=== PATIENT | female | born 1960 | race Caucasian/White ===

== ENCOUNTER → 2020-06-29 10:20 | Outpatient (CLI) | payer BC, SELFPAY ==
--- NOTE | 2020-06-29 | DI.MG.S_ITS ---
BILATERAL DIGITAL SCREENING MAMMOGRAM 3D/2D WITH CAD: 06/29/2020 CLINICAL: Routine screening. Comparison is made to exams dated: 09/19/2010 mammogram, 09/25/2010 mammogram, and 09/15/2013 mammogram - [facility]. There are scattered fibroglandular elements in both breasts. Current study was also evaluated with a Computer Aided Detection (CAD) system. No significant masses, calcifications, or other findings are seen in either breast. There has been no significant interval change. IMPRESSION: NEGATIVE There is no mammographic evidence of malignancy. A 1 year screening mammogram is recommended. This exam was interpreted at Station ID: [id number]. NOTE: For mammograms, a report in lay terms will be sent to the patient. Approximately 15% of breast malignancies will not be visualized mammographically. In the management of a palpable breast mass, a negative mammogram must not discourage biopsy of a clinically suspicious lesion. Electronically Signed By: Josesito keane/nohemy:07/01/2020 07:50:14 letter sent: Normal Exam ACR BI-RADS Category 1: Negative 3341F
== END ==
PROVIDERS: Referring Provider Family Medicine; Visit Provider Family Medicine
DX: Z12.31 Encounter for screening mammogram for malignant neoplasm of breast (principal)
CPT/HCPCS: 77063; 77067

== ENCOUNTER → 2021-08-18 07:34 | Outpatient (CLI) | payer BC, SELFPAY ==
--- NOTE | 2021-08-18 | DI.MG.S_ITS ---
BILATERAL DIGITAL SCREENING MAMMOGRAM 3D/2D WITH CAD: 08/18/2021 CLINICAL: Routine screening. Comparison is made to exams dated: 06/29/2020 mammogram - [facility], 09/15/2013 mammogram, and 09/25/2010 mammogram - [facility]. There are scattered fibroglandular elements in both breasts. Current study was also evaluated with a Computer Aided Detection (CAD) system. No significant masses, calcifications, or other findings are seen in either breast. There has been no significant interval change. IMPRESSION: NEGATIVE There is no mammographic evidence of malignancy. A 1 year screening mammogram is recommended. This exam was interpreted at Station ID: [id number]. NOTE: For mammograms, a report in lay terms will be sent to the patient. Approximately 15% of breast malignancies will not be visualized mammographically. In the management of a palpable breast mass, a negative mammogram must not discourage biopsy of a clinically suspicious lesion. Electronically Signed By: Prema kelly/nohemy:08/18/2021 12:49:19 letter sent: Normal Exam ACR BI-RADS Category 1: Negative 3341F
== END ==
PROVIDERS: PCP Nurse Practitioner; Referring Provider Nurse Practitioner; Visit Provider Nurse Practitioner
DX: Z12.31 Encounter for screening mammogram for malignant neoplasm of breast (principal)
CPT/HCPCS: 77063; 77067

== ENCOUNTER → 2022-02-06 09:55 | Outpatient (CLI) | payer OTHER, SELFPAY ==
[2022-02-06 11:10] LABS: COVID19 -Nasal RAPID Negative (Negative)
== END ==
PROVIDERS: PCP Nurse Practitioner; Visit Provider Surgery
DX: Z20.822 Contact with and (suspected) exposure to COVID-19 (principal); Z01.812 Encounter for preprocedural laboratory examination
CPT/HCPCS: 87635; C9803

== ENCOUNTER 2022-02-09 11:36 | Day surgery (SDC) | payer OTHER, SELFPAY ==
--- NOTE | 2022-02-09 | PATH_ITS ---
[facility] Accession Number: [id number] . 01 Material submitted: . rectosigmoid junction - RECTO-SIGMOID POLYP . 01 Diagnosis: Rectosigmoid Colon, Polyp, Biopsy: Tubular adenoma. MRV 02/11/2022 1535 Local . 01 Electronically signed: . Sherlyn Guevara MD, Pathologist NPI- [id number] . 01 Gross description: . RECTO-SIGMOID POLYP: Received in formalin is 1 fragment(s) of mendez, soft tissue measuring 0.4 x 0.3 x 0.2 cm submitted entirely in 1 cassette(s) /DONIS 02/10/2022 1853 Local . 01 Pathologist provided ICD-10: D12.7 . 01 CPT . 570292 Specimen Comment: A courtesy copy of this report has been sent to [phone] Specimen Comment: [id number], Performed at: 01 [facility] [address] [place] [address] [address], [place], [place] [id number] MD Conor Jarquin MD Phone: [phone]
[2022-02-09 11:56] VITALS: BP 130/81; PULSE 74; RESP 16; TEMP 36.3; O2SAT 98; BMI 27.4
--- NOTE | 2022-02-09 12:09 | PM.HP.1 ---
History of Present Illness History of Present Illness Chief complaint: SCREENING COLONOSCOPY Narrative: 61-year-old female here for colon cancer screening. She is at average risk for colon cancer Patient History Surgical History (Updated 08/31/17 @ 06:10 by Conversion Provider) Status post appendectomy Family & Social History Family History (Updated 10/11/16 @ 00:00 by Conversion Provider) Father Age: 101 Heart disease Hypertension Mental health problem Mother Heart disease Grandfather Heart disease Grandmother Heart disease Sister Age: 67 Lupus Celiac disease Social History: household members spouse Tobacco & Substance use: Smoking Status Never smoker alcohol intake current alcohol intake frequency a few times a week Substance Use Type does not use Meds Home Medications and Allergies Allergies Allergy/AdvReac Type Severity Reaction Status Date / Time latex [LATEX] Allergy Unknown Verified 02/09/22 11:49 Sulfa (Sulfonamide Allergy Unknown Verified 02/09/22 11:49 Antibiotics) [SULFA (SULFONAMIDE ANTIBIOTICS)] Exam Vital Signs (past 8 hours): - 02/09/22 11:56 Temperature 97.4 F L Pulse Rate 74 Respiratory Rate 16 Blood Pressure 130/81 Pulse Oximetry 98 Oxygen Delivery Method Room Air Oxygen Delivery Method Room Air Narrative Exam Narrative: General: Patient is overweight, not in apparent distress Cardiovascular: Regular rate and rhythm, no murmurs, rubs, or gallops; no evidence of edema; no palpable abdominal aortic aneurysm Gastrointestinal: Normoactive bowel sounds, soft, nontender, nondistended, no rebound tenderness, no hepatosplenomegaly, no evidence of hernia Assessment & Plan Assessment & Plan narrative: 61-year-old female here for colon cancer screening. No family history of colon polyps or colon cancer Regarding the procedure(s), the risks and potential complications, benefits, and alternatives (including not doing the procedure) were discussed with the patient. The risks include but are not limited to bleeding, splenic injury, infection, perforation which may require surgical intervention, missed lesions, and adverse reactions to sedative medicines. After a question and answer period, the patient agreed to proceed with the procedure(s) and gives informed consent. Time Spent With Patient Critical Care time: I spent a total of [] minutes of critical care time on this patient's care today; this time is exclusive of procedural time.
[2022-02-09] MEDS: SODIUM CHLORIDE 0.9% 1,000 ML 70 ML IV (12:12)
--- NOTE | 2022-02-09 12:19 | PM.OP.COLON ---
Procedure Notes Procedure in detail: Surgeon: Meek Tapia MD Procedure: Colonoscopy with polypectomy Preoperative diagnosis: Colon cancer screening Postoperative diagnosis: Rectosigmoid polyp status post polypectomy, grade 1 internal hemorrhoids Medications: Monitored anesthesia care Preanesthesia Assessment An H and P was performed/updated and the Px?s ASA class is 1. The procedure was discussed in detail with the patient. The potential risks and complications including infection, bleeding, missed lesions, perforation, need for surgery in case of perforation, prolonged hospital stay, and were explained. A brief question and answer period was allotted and once all questions were answered, informed consent was obtained. The patient was brought back to the procedure room and placed on standard monitoring. The patient?s vital signs were monitored continuously throughout the entire procedure. Prior to starting, a timeout was performed to confirm the patient?s identity, allergies, medications, and procedure. Procedure in detail The patient was placed in left lateral decubitus position and once adequate sedation was obtained a VIVIEN was performed. The digital rectal examination did not reveal any palpable lesions. The tip of the colonoscope was placed in the anal canal and advanced without difficulty all the way to the cecum which was identified by the appendiceal orifice and the ileocecal valve. Careful examination of all yeh of the colon was performed with irrigation of any residual stool. In the rectosigmoid colon, a 3 mm sessile polyp was removed by means of cold snare. Resection and retrieval was complete with minimal bleeding The patient tolerated the procedure well and will be brought back to the recovery area to be discharged once criteria are met. The prep was judged to be good and adequate to identify polyps less than 5 mm. The withdrawal time was 10 minutes. Complications There were no complications and estimated blood loss was minimal. Recommendations: Resume previous diet Follow up pathology results Repeat colonoscopy in 5 or 7 or 10 years depending on pathology results An emergency contact number was given to the patient for any complications related to the procedure
[2022-02-09 12:41] VITALS: BP 126/80; PULSE 68; RESP 15; TEMP 36.1; O2SAT 98
[2022-02-09 12:47] VITALS: BP 128/81; PULSE 72; RESP 19; O2SAT 99
[2022-02-09 12:52] VITALS: BP 129/81; PULSE 57; RESP 12; TEMP 36.3; O2SAT 99
[2022-02-09 13:04] VITALS: BP 112/70; PULSE 77; RESP 16; TEMP 36.8; O2SAT 98
== END 2022-02-09 13:03 | disposition home or self-care (01) ==
PROVIDERS: PCP Nurse Practitioner; Referring Provider Internal Medicine Gastroenterology; Visit Provider Internal Medicine Gastroenterology
PROC: 0DJD8ZZ Inspection of Lower Intestinal Tract, Via Natural or Artificial Opening Endoscopic (ICD-10-PCS; CPT 45378; principal; 2022-02-09 12:30)
DX: Z12.11 Encounter for screening for malignant neoplasm of colon (principal); K64.0 First degree hemorrhoids; D12.7 Benign neoplasm of rectosigmoid junction
CPT/HCPCS: 45385; J2704

== ENCOUNTER → 2023-05-08 08:13 | Outpatient (CLI) | payer OTHER, SELFPAY ==
--- NOTE | 2023-05-08 | DI.MG.S_ITS ---
BILATERAL DIGITAL SCREENING MAMMOGRAM 3D/2D WITH CAD: 05/08/2023 CLINICAL: Routine screening. Comparison is made to exams dated: 08/18/2021 mammogram, 06/29/2020 mammogram - [facility], and 09/15/2013 mammogram - [facility]. There are scattered areas of fibroglandular density in both breasts (category b / 25%-50% glandular tissue). Current study was also evaluated with a Computer Aided Detection (CAD) system. No significant masses, calcifications, or other findings are seen in either breast. There has been no significant interval change. IMPRESSION: NEGATIVE There is no mammographic evidence of malignancy. A 1 year screening mammogram is recommended. Based on the Tyrer Cuzick model (a risk assessment model) the patient's lifetime risk is 8.0% and her 10 year risk is 3.4%. According to the ACR, ACS, and NCCN guidelines, an annual breast MRI exam along with mammogram is recommended if the patient's lifetime risk is 20% or greater. This exam was interpreted at Station ID: [id number]. NOTE: For mammograms, a report in lay terms will be sent to the patient. Approximately 15% of breast malignancies will not be visualized mammographically. In the management of a palpable breast mass, a negative mammogram must not discourage biopsy of a clinically suspicious lesion. Electronically Signed By: Josesito keane/nohemy:05/10/2023 07:41:04 letter sent: Normal Exam ACR BI-RADS Category 1: Negative 3341F
== END ==
LOC: MAMMO 08:18
PROVIDERS: PCP Nurse Practitioner; Referring Provider Nurse Practitioner; Visit Provider Nurse Practitioner
DX: Z12.31 Encounter for screening mammogram for malignant neoplasm of breast (principal); R92.323 Mammographic fibroglandular density, bilateral breasts
CPT/HCPCS: 77063; 77067